=== PATIENT | male | born 1960 | race Caucasian/White ===

== ENCOUNTER 2017-08-13 10:33 | Outpatient (CLI) | payer OTHER ==
[~2017-08-13] VITALS: Ht 175.3 cm; Wt 69.4 kg
[2017-08-13 10:58] VITALS: BP 102/51
[2017-08-13] MEDS ORDERED: SYNTHROID25 MCG ORAL (11:04)
[2017-08-13] MEDS ORDERED: WELLBUTRIN XL150 MG ORAL (11:04)
[2017-08-13] MEDS ORDERED: NAMENDA10 MG ORAL (11:04)
[2017-08-13] MEDS ORDERED: ATIVAN0.5 MG ORAL (11:04)
--- NOTE | 2017-08-13 16:46 | GI Initial Consult Note ---
History of Present Illness General Date patient seen: August 13, 2017 Time patient seen: 16:39 Referring physician: Edita Leroy Reason for Consultation: Persistent Vomiting Present Illness HPI 56 year old male patient known to us from [facility]. Has history of gastric bypass with dilation. EGD performed by Dr. Bernal himself. Hx of weight loss from 243lbs to 153 lbs today presents today with c/o of vomiting after having solid PO intake. The patient was previously diagnosed with a gastric bypass stricture with stent placement in January of 2017, in which he was on a liquid diet for 7 months. Request for repeat esophageal dilation today. Home Meds Reported Medications Lorazepam* (ATIVAN*) 0.5 Mg Tablet, 0.5 MG ORAL DAILY, TAB 08/13/17 Memantine Hcl* (NAMENDA*) 10 Mg Tablet, 20 MG ORAL DAILY, TAB 08/13/17 Bupropion Hcl* (WELLBUTRIN XL*) 150 Mg Tab.er.24h, 75 MG ORAL BID for 30 Days, TAB 0 Refills 08/13/17 Levothyroxine Sodium* (SYNTHROID*) 25 Mcg Tablet, 25 MCG ORAL DAILY, TAB Take in the morning on an empty stomach, at least 30 minutes before food. 08/13/17 Med list reviewed/reconciled: Yes Allergies: Coded Allergies: No Known Allergies (Unverified , 08/13/17) Patient History History Provided By: Patient, Medical Record [facility] Narrative Colon Polyp anxiety depression sleep apnea Past Surgical History: gastric bypass knee surgery sinus tonsillectomy Social History: Reports: smoking - daily tobacco use 20/day, other - caffiend coffee x 4/daily; Denies: alcohol use, drug use Review of Systems All Other Systems: negative except mentioned in HPI Physical Exam Vital Signs Date Time Temp Pulse Resp B/P (MAP) Pulse Ox O2 Delivery O2 Flow Rate FiO2 08/13/17 10:58 97.6 55 16 102/51 97 97.6 Sp02 EP Interpretation: reviewed, normal General Appearance: well appearing, no apparent distress, alert Head: normocephalic EENT: PERRL/EOMI, normal ENT inspection Neck: supple Respiratory: normal breath sounds, no respiratory distress Cardiovascular: normal rate Gastrointestinal: normal inspection, non tender, soft, normal bowel sounds, non -distended Rectal: deferred Genitourinary: deferred Musculoskeletal: normal inspection, back normal Neurologic: normal inspection, alert, oriented x3, responsive Psychiatric: normal inspection, judgement/insight normal, memory normal Skin: normal inspection, normal color, no rash, warm/dry, palpation normal, well hydrated Lymphatic: normal inspection, no adenopathy GI: Plan Problems: (1) H/O gastric bypass (2) Esophageal stricture (3) Vomiting (4) Weight loss (5) Colonic polyp (6) Anxiety (7) Depression (8) Sleep apnea Plan EGD + dilation to be scheduled pending prior authorization, will contact patient. - NPO @ [place] day prior procedure explained to pain. cont liquid diet Seen with Dr. Bernal. Thank you for this patient referral. The patient was seen and examined at bedside and all new and available data was reviewed in the patients chart. I agree with the above findings, impression and plan. (Patient seen earlier today. Signature stamp does not reflect patient encounter time.). - [facility] [employer] August 13, 2017 16:46
== END 2017-08-13 11:05 | disposition home or self-care (01) ==
LOC: PAN 10:33
DX: R11.10 Vomiting, unspecified (principal); Z98.84 Bariatric surgery status; K22.2 Esophageal obstruction; R63.4 Abnormal weight loss; K63.5 Polyp of colon; F41.9 Anxiety disorder, unspecified; F32.9 Major depressive disorder, single episode, unspecified; G47.30 Sleep apnea, unspecified; F17.210 Nicotine dependence, cigarettes, uncomplicated
CPT/HCPCS: 99201

== ENCOUNTER 2018-02-04 10:30 | Outpatient (CLI) | payer OTHER ==
[~2018-02-04 10:30] MED LIST: ATIVAN0.5 MG ORAL; NAMENDA10 MG ORAL; SYNTHROID25 MCG ORAL; WELLBUTRIN XL150 MG ORAL
[2018-02-04 14:50] VITALS: BP 105/61
--- NOTE | 2018-02-04 16:33 | GI Progress Note ---
Assessment/Plan Problems: (1) H/O gastric bypass ICD Codes: Z98.84 - Bariatric surgery status SNOMED: 078405585 (2) Vomiting ICD Codes: R11.10 - Vomiting, unspecified SNOMED: 490436830 (3) Weight loss ICD Codes: R63.4 - Abnormal weight loss SNOMED: 99777491, 929244368 (4) Esophageal stricture ICD Codes: K22.2 - Esophageal obstruction SNOMED: 96181055 (5) Depression ICD Codes: F32.9 - Major depressive disorder, single episode, unspecified SNOMED: 04384531 (6) Anxiety ICD Codes: F41.9 - Anxiety disorder, unspecified SNOMED: 74957733 Status: stable Status Narrative Seen with Dr. Bernal. Assessment/Plan Extensive discussion on dietary recommendations and restrictions with patient. RTC x3 months will consider endoscopy if necessary The patient was seen and examined at bedside and all new and available data was reviewed in the patients chart. I agree with the above findings, impression and plan. (Patient seen earlier today. Signature stamp does not reflect patient encounter time.). - Kobe Bernal MD Subjective Subjective s/p EGD with stent removal unable to tolerate solids, causes vomit history of gastric bypass wants to speak to MD Objective Last 24 Hour Vital Signs Date Time Temp Pulse Resp B/P (MAP) Pulse Ox O2 Delivery O2 Flow Rate FiO2 02/04/18 14:50 98.0 58 105/61 98 General Appearance: WD/WN, no apparent distress, alert Cardiovascular: normal rate Respiratory/Chest: normal breath sounds, no respiratory distress Abdominal Exam: normal bowel sounds, non tender, soft Extremities: normal range of motion, non-tender Araceli Lyons [employer] ADVIS[employer] Feb 04, 2018 16:33
== END 2018-02-04 11:00 | disposition home or self-care (01) ==
LOC: PAN 10:30
DX: R11.10 Vomiting, unspecified (principal); Z98.84 Bariatric surgery status; R63.4 Abnormal weight loss; K22.2 Esophageal obstruction; F32.9 Major depressive disorder, single episode, unspecified; F41.9 Anxiety disorder, unspecified
CPT/HCPCS: 99203